=== PATIENT | male | born 1930 | race African-American/Black ===

== ENCOUNTER → 2017-07-08 | Outpatient (CLI) | payer MEDICARE, OTHER ==
[~2017-07-08] MED LIST: ASPIRIN 32325 MG/TAB PO; ASPIRIN 81M81 MG/TA2 PO; ASPIRIN E.C. 8181 MG PO; CALCIUM600 MG PO; CARAFATE 1GM1 G PO; CENTRUM SILVER1 TA1 PO; CENTRUM SILVER1 TA2 PO; DEXILANT30 MG PO; DEXILANT60 MG PO; EFFIENT10 MG PO; ENALAPRIL10 MG PO; FERROUS FUMARA325 MG PO; FIBERCON500 MG PO; FLOMAX 0.40.4 MG/CAP PO; IMDUR 60MG60 MG/TAB PO; IRON FERROUS S325 MG PO; ISOSORBIDE30 MG PO; K-DUR 2020 MEQ PO; LASIX 20MG TABL20 MG PO; LEVAQUIN 5500 MG/TA1 PO; LIPITOR20 MG PO; METOPROLOL50 MG PO; MIRALAX PA17 GM/Dose PO; NEXIUM 40MG40 MG PO; NIASPAN1000 MG PO; NIASPAN500 MG PO; NITROQUICK0.4 MG SL; OSCAL 500 TAB500 MG PO; PLAVIX 75MG TAB75 MG PO; PRILOTC PO; PROBIOTICA100 MILLIO PO; RANEXA 500MG T500 MG PO; TOPROL XL 50MG50 MG PO; ULORIC40 MG PO; VASOTEC 10M10 MG/TAB PO; ZESTRIL 10MG10 MG PO; ZITHROMAX 250M250 MG PO; ZOCOR 20MG20 MG PO
[2017-07-08 11:52] LABS: CALCIUM 9.6 mg/dL (8.4-10.2); CREATININE, serum 1.87 mg/dL (0.66-1.25); POTASSIUM 5.4 mmol/L (3.4-5.0)
[2017-07-08 12:05] LABS: TROPONIN-I 0.034 ng/mL (0.000-0.034)
== END ==
LOC: COL.LAB 11:04
DX: Z01.89 Encounter for other specified special examinations (principal)

== ENCOUNTER → 2017-11-16 | Outpatient (CLI) | payer MEDICARE, OTHER | LOC: COL.VAS 11-15 11:15 | DX: I51.7 Cardiomegaly (principal); Z95.2 Presence of prosthetic heart valve ==

== ENCOUNTER → 2017-11-30 | Outpatient (CLI) | payer MEDICARE, OTHER | LOC: COL.CARD 09:43 | DX: R00.1 Bradycardia, unspecified (principal) ==

== ENCOUNTER 2018-02-16 07:36 | Observation (INO) | payer MEDICARE, OTHER ==
[~2018-02-16] VITALS: Ht 172.7 cm; Wt 67.9 kg
[2018-02-16 07:54] LABS: BASO % 0.4 % (0.0-2.0); EOS # 0.4 (0.0-0.7); EOS % 4.3 % (0-4.0); GRAN # 6.6 (1.4-6.5); GRAN % 69.7 % (42.2-75.2); LYMPH # 0.9 (1.2-3.4); LYMPH % 9.9 % (20.0-51.0); MEAN CELL VOLUME 91 fl (80.0-100.0); MEAN CORPUSCULAR HGB CONC 32 g/dl (33.0-37.0); MEAN PLATELET VOLUME 10.6 fl (7.4-10.4); MONO # 1.3 (0.1-0.6); PLATELET COUNT 325 K/mm3 (130-400); RED BLOOD COUNT 3.35 M/mm3 (4.20-5.60); REDCELL DISTRIBUTION WIDTH-CV 15.7 % (11.5-14.5)
[2018-02-16] MEDS ORDERED: NITROSTAT0.4 MG/TAB PO (07:56)
[2018-02-16 08:03] LABS: INR 1.2 (0.8-3.0); PROTHROMBIN TIME 13.2 SECONDS (9.7-12.8)
[2018-02-16 08:05] LABS: HEMATOCRIT 30.6 % (42.0-52.0); HEMOGLOBIN 9.9 g/dl (13.5-18.0); MEAN CORPUSCULAR HEMOGLOBIN 30 pg (27.0-31.0)
[2018-02-16 08:06] LABS: PARTIAL THROMBOPLASTIN TIME 44.4 SECONDS (26.0-37.0)
[2018-02-16 08:31] LABS: TROPONIN-I 0.028 ng/mL (0.000-0.034)
[2018-02-16 09:10] LABS: ALBUMIN 3.3 gm/dL (3.5-5.0); BILIRUBIN,TOTAL 0.6 mg/dL (0.0-1.0); CALCIUM 9.2 mg/dL (8.4-10.2); CREATININE, serum 2.81 mg/dL (0.66-1.25); POTASSIUM 4.6 mmol/L (3.4-5.0); TOTAL PROTEIN 6.8 gm/dL (6.4-8.2)
[2018-02-16 11:51] VITALS: BP 170/57; PULSE 61; TEMP 97.1
[2018-02-16] MEDS ORDERED: PROTONIX 40MG T40 MG PO (11:59)
[2018-02-16] MEDS ORDERED: PLAVIX 75MG TAB75 MG PO (12:00)
[2018-02-16 12:43] LABS: CHOLESTEROL RISK RATIO 4.1
[2018-02-16] MEDS ORDERED: LASIX 20MG TABL20 MG PO (12:47)
[2018-02-16 14:55] LABS: COLLECTION METHOD CLEAN CATCH
[2018-02-16 15:08] LABS: PH 5 (5-8); SQUAMOUS EPITHELIAL None Seen /hpf; URINE APPEARANCE Clear; URINE BACTERIA None Seen /hpf; URINE BILIRUBIN Negative (NEGATIVE); URINE BLOOD Negative (NEGATIVE); URINE COLOR Yellow; URINE GLUCOSE Negative (NEGATIVE); URINE KETONE Negative (NEGATIVE); URINE LEUKOCYTE ESTERASE Negative (NEGATIVE); URINE NITRATE Negative (NEGATIVE); URINE PROTEIN(semi-quant) Negative (NEGATIVE); URINE RBC 0-2 /hpf; URINE UROBILINOGEN Negative (NEGATIVE)
[2018-02-16] MEDS ORDERED: PREDFORTE10ML OU (15:20)
[2018-02-16] MEDS ORDERED: FERROUS SU325 MG/TAB PO (15:52)
[2018-02-16] MEDS ORDERED: COREG 6.256.25 MG/TA PO (15:55)
[2018-02-16] MEDS ORDERED: LEXAPRO 10MG10 MG PO (15:56)
[2018-02-16] MEDS ORDERED: PROCRIT 2,02 MU/VIAL SQ (15:57)
[2018-02-16 16:19] VITALS: BP 132/60; PULSE 65; TEMP 97.6
[2018-02-16] MEDS ORDERED: MONODOX100 PO (16:23)
[2018-02-16 20:07] VITALS: BP 173/50; PULSE 63; TEMP 68
[2018-02-16 22:30] VITALS: BP 116/49; PULSE 70; TEMP 98.8
[2018-02-17 04:59] VITALS: BP 170/51; PULSE 50; TEMP 98.6
[2018-02-17 06:53] LABS: MEAN CELL VOLUME 92 fl (80.0-100.0); MEAN CORPUSCULAR HGB CONC 32 g/dl (33.0-37.0); MEAN PLATELET VOLUME 10.5 fl (7.4-10.4); PLATELET COUNT 289 K/mm3 (130-400); RED BLOOD COUNT 3.08 M/mm3 (4.20-5.60); REDCELL DISTRIBUTION WIDTH-CV 15.9 % (11.5-14.5)
[2018-02-17 07:07] LABS: CALCIUM 8.7 mg/dL (8.4-10.2); CREATININE, serum 2.49 mg/dL (0.66-1.25); POTASSIUM 4.7 mmol/L (3.4-5.0)
[2018-02-17 07:13] LABS: HEMATOCRIT 28.4 % (42.0-52.0); HEMOGLOBIN 9.1 g/dl (13.5-18.0); MEAN CORPUSCULAR HEMOGLOBIN 30 pg (27.0-31.0)
[2018-02-17 08:10] VITALS: BP 124/79; PULSE 61; TEMP 98.4
[2018-02-17 08:35] LABS: BAND 1 % (0-10); EOSINOPHIL 4 % (0-4); LYMPHOCYTE 12 % (20.0-51.0); METAMYELOCYTE 1 % (0-0); NEUTROPHILS 71 % (42.0-75.2); PLATELET ESTIMATE NORMAL (NORMAL)
[2018-02-17 08:36] LABS: HYPOCHROMIA 1+
[2018-02-17] MEDS ORDERED: NORVASC 10MG10 MG PO (10:46)
[2018-02-17 12:10] VITALS: BP 129/76; PULSE 64; TEMP 98.3
== END 2018-02-17 13:59 | disposition home or self-care (01) ==
LOC: COL.ER 07:36 → MEDICAL 10:28
PROVIDERS: Emergency Medicine; Student in an Organized Health Care Education/Training Program
DX: R07.9 Chest pain, unspecified (principal); I16.0 Hypertensive urgency; N18.3 Chronic kidney disease, stage 3 (moderate); N17.9 Acute kidney failure, unspecified; I25.10 Atherosclerotic heart disease of native coronary artery without angina pectoris; D53.9 Nutritional anemia, unspecified; K21.9 Gastro-esophageal reflux disease without esophagitis; M10.9 Gout, unspecified; E78.5 Hyperlipidemia, unspecified; I08.3 Combined rheumatic disorders of mitral, aortic and tricuspid valves; Z95.0 Presence of cardiac pacemaker; Z95.2 Presence of prosthetic heart valve; Z79.51 Long term (current) use of inhaled steroids; Z79.82 Long term (current) use of aspirin; Z79.02 Long term (current) use of antithrombotics/antiplatelets; Z85.46 Personal history of malignant neoplasm of prostate; Z87.891 Personal history of nicotine dependence
CPT/HCPCS: G0378; J1644

== ENCOUNTER 2018-03-17 19:32 | Inpatient (IN) | payer MEDICARE, OTHER ==
[~2018-03-17] VITALS: Ht 172.7 cm; Wt 67.5 kg
[~2018-03-17 19:32] MED LIST changes: +COREG 6.256.25 MG/TA PO; +FERROUS SU325 MG/TAB PO; +LEXAPRO 10MG10 MG PO; +MONODOX100 PO; +NITROSTAT0.4 MG/TAB PO; +NORVASC 10MG10 MG PO; +PREDFORTE10ML OU; +PROCRIT 2,02 MU/VIAL SQ; +PROTONIX 40MG T40 MG PO
[2018-03-17 20:31] VITALS: BP 143/79; PULSE 71
[2018-03-17 20:35] LABS: BASO % 0.5 % (0.0-2.0); EOS # 0.6 (0.0-0.7); EOS % 6.8 % (0-4.0); GRAN # 5.5 (1.4-6.5); GRAN % 64.3 % (42.2-75.2); LYMPH # 0.6 (1.2-3.4); LYMPH % 7.4 % (20.0-51.0); MEAN CELL VOLUME 91 fl (80.0-100.0); MEAN CORPUSCULAR HGB CONC 32 g/dl (33.0-37.0); MEAN PLATELET VOLUME 10.7 fl (7.4-10.4); MONO # 1.8 (0.1-0.6); MONO % 20.6 % (1.7-9.3); PLATELET COUNT 242 K/mm3 (130-400); RED BLOOD COUNT 2.75 M/mm3 (4.20-5.60); REDCELL DISTRIBUTION WIDTH-CV 17.7 % (11.5-14.5)
[2018-03-17 20:37] LABS: HEMOGLOBIN 8.1 g/dl (13.5-18.0); MEAN CORPUSCULAR HEMOGLOBIN 29 pg (27.0-31.0)
[2018-03-17 20:52] LABS: COLLECTION METHOD CLEAN CATCH
[2018-03-17 21:02] LABS: ALBUMIN 3.4 gm/dL (3.5-5.0); BILIRUBIN,TOTAL 0.3 mg/dL (0.0-1.0); C-REACTIVE PROTEIN 2.9 mg/dL (0.0-0.9); CALCIUM 9.2 mg/dL (8.4-10.2); CREATININE, serum 3.08 mg/dL (0.66-1.25); POTASSIUM 5.7 mmol/L (3.4-5.0); TOTAL PROTEIN 6.9 gm/dL (6.4-8.2)
[2018-03-17 21:04] LABS: PH 6 (5-8); SQUAMOUS EPITHELIAL 0-2 /hpf; URINE APPEARANCE Clear; URINE BACTERIA None Seen /hpf; URINE BILIRUBIN Negative (NEGATIVE); URINE BLOOD Negative (NEGATIVE); URINE COLOR Yellow; URINE GLUCOSE Negative (NEGATIVE); URINE KETONE Negative (NEGATIVE); URINE LEUKOCYTE ESTERASE Negative (NEGATIVE); URINE NITRATE Negative (NEGATIVE); URINE PROTEIN(semi-quant) Negative (NEGATIVE); URINE RBC 0-2 /hpf; URINE UROBILINOGEN Negative (NEGATIVE)
[2018-03-17 21:10] LABS: TROPONIN-I 0.023 ng/mL (0.000-0.034)
[2018-03-17] MEDS ORDERED: CARAFATE 1GM1 G PO (21:27)
[2018-03-17] MEDS ORDERED: PROCRIT 1010 MU/VIAL (21:28)
[2018-03-17] MEDS ORDERED: RANEXA 500MG T500 MG PO (21:28)
[2018-03-17] MEDS ORDERED: VASOTEC 10M10 MG/TAB PO (21:31)
[2018-03-17] MEDS ORDERED: ASPIRIN 32325 MG/TAB PO (21:32)
[2018-03-17] MEDS ORDERED: COREG12.5 MG PO (21:32)
[2018-03-17] MEDS ORDERED: LASIX 20MG TABL20 MG PO (21:32)
[2018-03-17] MEDS ORDERED: OSCAL 500 TAB500 MG PO (21:32)
[2018-03-17 23:33] VITALS: BP 138/67; PULSE 81; TEMP 97.7
[2018-03-18] VITALS (14 sets, daily range): BP systolic 104–178; BP diastolic 38–85; PULSE 56–100; TEMP 98.2–99.2
[2018-03-18 00:58] LABS: HEMATOCRIT 24.8 % (42.0-52.0); HEMOGLOBIN 8.1 g/dl (13.5-18.0)
[2018-03-18 01:21] LABS: CALCIUM 8.8 mg/dL (8.4-10.2); CREATININE, serum 2.84 mg/dL (0.66-1.25)
[2018-03-18 04:46] LABS: HEMATOCRIT 24.9 % (42.0-52.0); HEMOGLOBIN 8.1 g/dl (13.5-18.0)
[2018-03-18 09:33] LABS: BASO % 0.4 % (0.0-2.0); EOS # 0.2 (0.0-0.7); EOS % 2.2 % (0-4.0); GRAN # 5.7 (1.4-6.5); GRAN % 74.3 % (42.2-75.2); HEMATOCRIT 24.6 % (42.0-52.0); HEMOGLOBIN 7.9 g/dl (13.5-18.0); LYMPH # 0.4 (1.2-3.4); LYMPH % 5.5 % (20.0-51.0); MEAN CELL VOLUME 90 fl (80.0-100.0); MEAN CORPUSCULAR HEMOGLOBIN 29 pg (27.0-31.0); MEAN CORPUSCULAR HGB CONC 32 g/dl (33.0-37.0); MEAN PLATELET VOLUME 9.5 fl (7.4-10.4); MONO # 1.3 (0.1-0.6); MONO % 17.3 % (1.7-9.3); PLATELET COUNT 216 K/mm3 (130-400); RED BLOOD COUNT 2.73 M/mm3 (4.20-5.60); REDCELL DISTRIBUTION WIDTH-CV 17.5 % (11.5-14.5)
[2018-03-18 09:49] LABS: CALCIUM 8.7 mg/dL (8.4-10.2); CREATININE, serum 2.72 mg/dL (0.66-1.25); POTASSIUM 5.5 mmol/L (3.4-5.0)
[2018-03-18 10:04] LABS: TROPONIN-I 0.063 ng/mL (0.000-0.034)
[2018-03-18 12:57] LABS: HEMATOCRIT 24.4 % (42.0-52.0); HEMOGLOBIN 7.8 g/dl (13.5-18.0)
[2018-03-18 20:43] LABS: HEMATOCRIT 31.1 % (42.0-52.0); HEMOGLOBIN 9.9 g/dl (13.5-18.0)
[2018-03-19] VITALS (8 sets, daily range): BP systolic 125–167; BP diastolic 47–94; PULSE 84–100; TEMP 97.7–98.9
[2018-03-19 07:58] LABS: MEAN CELL VOLUME 91 fl (80.0-100.0); MEAN CORPUSCULAR HGB CONC 32 g/dl (33.0-37.0); MEAN PLATELET VOLUME 10.7 fl (7.4-10.4); PLATELET COUNT 212 K/mm3 (130-400); RED BLOOD COUNT 3.34 M/mm3 (4.20-5.60); REDCELL DISTRIBUTION WIDTH-CV 17.8 % (11.5-14.5)
[2018-03-19 08:02] LABS: HEMATOCRIT 30.3 % (42.0-52.0); HEMOGLOBIN 9.8 g/dl (13.5-18.0); MEAN CORPUSCULAR HEMOGLOBIN 29 pg (27.0-31.0)
[2018-03-19 08:09] LABS: CALCIUM 8.5 mg/dL (8.4-10.2); CREATININE, serum 2.43 mg/dL (0.66-1.25)
[2018-03-19 09:23] LABS: BAND 7 % (0-10); LYMPHOCYTE 2 % (20.0-51.0); NEUTROPHILS 86 % (42.0-75.2)
[2018-03-19 09:24] LABS: PLATELET ESTIMATE NORMAL (NORMAL)
[2018-03-20 03:47] VITALS: BP 151/65; PULSE 94; TEMP 98.5
[2018-03-20 07:07] LABS: HEMOGLOBIN 10.2 g/dl (13.5-18.0); MEAN CELL VOLUME 88 fl (80.0-100.0); MEAN CORPUSCULAR HEMOGLOBIN 29 pg (27.0-31.0); MEAN CORPUSCULAR HGB CONC 33 g/dl (33.0-37.0); MEAN PLATELET VOLUME 10.3 fl (7.4-10.4); PLATELET COUNT 229 K/mm3 (130-400); REDCELL DISTRIBUTION WIDTH-CV 17.6 % (11.5-14.5)
[2018-03-20 07:25] LABS: CALCIUM 8.5 mg/dL (8.4-10.2); CREATININE, serum 2.46 mg/dL (0.66-1.25)
[2018-03-20 07:29] LABS: HEMATOCRIT 30.8 % (42.0-52.0)
[2018-03-20 08:13] LABS: ANISOCYTOSIS 1+; BAND 1 % (0-10); EOSINOPHIL 2 % (0-4); LYMPHOCYTE 1 % (20.0-51.0); NEUTROPHILS 89 % (42.0-75.2); TOXIC GRANULATION PRESENT
[2018-03-20 08:14] LABS: PLATELET ESTIMATE NORMAL (NORMAL)
[2018-03-20 08:27] VITALS: BP 147/53; PULSE 88; TEMP 98
[2018-03-20 11:10] VITALS: BP 124/39; PULSE 90; TEMP 97.8
[2018-03-20 15:22] VITALS: BP 154/59; PULSE 95; TEMP 98.4
[2018-03-20 20:25] VITALS: BP 123/48; PULSE 96; TEMP 97.5
[2018-03-20 23:48] VITALS: BP 141/56; PULSE 87; TEMP 98.6
[2018-03-21 03:53] VITALS: BP 141/53; PULSE 92; TEMP 98.5
[2018-03-21 07:13] LABS: HEMOGLOBIN 11.2 g/dl (13.5-18.0); MEAN CELL VOLUME 88 fl (80.0-100.0); MEAN CORPUSCULAR HEMOGLOBIN 29 pg (27.0-31.0); MEAN CORPUSCULAR HGB CONC 33 g/dl (33.0-37.0); MEAN PLATELET VOLUME 11.1 fl (7.4-10.4); PLATELET COUNT 284 K/mm3 (130-400); RED BLOOD COUNT 3.83 M/mm3 (4.20-5.60); REDCELL DISTRIBUTION WIDTH-CV 17.7 % (11.5-14.5)
[2018-03-21 07:16] LABS: CALCIUM 8.9 mg/dL (8.4-10.2); CREATININE, serum 2.68 mg/dL (0.66-1.25); MAGNESIUM 1.9 mg/dL (1.6-2.3); POTASSIUM 3.7 mmol/L (3.4-5.0)
[2018-03-21 07:18] LABS: HEMATOCRIT 33.7 % (42.0-52.0)
[2018-03-21 07:50] VITALS: BP 156/60; PULSE 93; TEMP 98.7
[2018-03-21 09:54] LABS: ANISOCYTOSIS 1+; BAND 5 % (0-10); HYPOCHROMIA 2+; LYMPHOCYTE 10 % (20.0-51.0); NEUTROPHILS 75 % (42.0-75.2); PLATELET ESTIMATE NORMAL (NORMAL)
[2018-03-21 11:35] VITALS: BP 131/70; PULSE 81; TEMP 97.6
[2018-03-21] MEDS ORDERED: ASPIRIN 81M81 MG/TA2 PO (13:43)
[2018-03-21] MEDS ORDERED: LASIX 40MG TABL40 MG PO (13:44)
[2018-03-21 15:39] VITALS: PULSE 83
== END 2018-03-21 20:27 | disposition home or self-care (01) | DRG 280 ==
LOC: COL.ER 19:32 → SURG 22:09
PROVIDERS: Emergency Medicine; Internal Medicine; Internal Medicine Pulmonary Disease; Nurse Practitioner Family
DX: I13.0 Hypertensive heart and chronic kidney disease with heart failure and stage 1 through stage 4 chronic kidney disease, or unspecified chronic kidney disease (principal); I50.33 Acute on chronic diastolic (congestive) heart failure; I21.A1 Myocardial infarction type 2; K55.21 Angiodysplasia of colon with hemorrhage; N18.4 Chronic kidney disease, stage 4 (severe); D62 Acute posthemorrhagic anemia; N17.9 Acute kidney failure, unspecified; I25.10 Atherosclerotic heart disease of native coronary artery without angina pectoris; Z95.1 Presence of aortocoronary bypass graft; Z95.5 Presence of coronary angioplasty implant and graft; Z95.2 Presence of prosthetic heart valve; Z87.891 Personal history of nicotine dependence; Z85.46 Personal history of malignant neoplasm of prostate; D50.0 Iron deficiency anemia secondary to blood loss (chronic); E87.5 Hyperkalemia; I08.2 Rheumatic disorders of both aortic and tricuspid valves; Z91.81 History of falling
CPT/HCPCS: 99222-AI; 99232-AI; 99233-AI; 99239; C9113; G0378; G8978-GP; G8979-GP; J1940; J7030; P9016

== ENCOUNTER → 2018-03-28 | Outpatient (CLI) | payer MEDICARE, OTHER ==
[~2018-03-28] MED LIST changes: +COREG12.5 MG PO; +LASIX 40MG TABL40 MG PO; +PROCRIT 1010 MU/VIAL
== END ==
LOC: COL.RAD 07:16
DX: Z53.8 Procedure and treatment not carried out for other reasons (principal); D50.9 Iron deficiency anemia, unspecified

== ENCOUNTER 2018-04-26 09:50 | Inpatient (IN) | payer MEDICARE, OTHER ==
[~2018-04-26] VITALS: Ht 172.7 cm; Wt 62.5 kg
[2018-04-26 10:24] LABS: BASO % 0.1 % (0.0-2.0); GRAN # 14.9 (1.4-6.5); GRAN % 78.2 % (42.2-75.2); HEMATOCRIT 45.5 % (42.0-52.0); HEMOGLOBIN 15.2 g/dl (13.5-18.0); LYMPH # 0.8 (1.2-3.4); LYMPH % 4.3 % (20.0-51.0); MEAN CELL VOLUME 86 fl (80.0-100.0); MEAN CORPUSCULAR HEMOGLOBIN 29 pg (27.0-31.0); MEAN CORPUSCULAR HGB CONC 33 g/dl (33.0-37.0); MONO # 3.1 (0.1-0.6); PLATELET COUNT 254 K/mm3 (130-400); RED BLOOD COUNT 5.29 M/mm3 (4.20-5.60)
[2018-04-26 10:26] LABS: INR 1.2 (0.8-3.0); PROTHROMBIN TIME 13.1 SECONDS (9.7-12.8)
[2018-04-26 10:31] LABS: ALBUMIN 3.9 gm/dL (3.5-5.0); BILIRUBIN,TOTAL 0.6 mg/dL (0.0-1.0); CALCIUM 9.3 mg/dL (8.4-10.2); POTASSIUM 4.9 mmol/L (3.4-5.0); TOTAL PROTEIN 7.2 gm/dL (6.4-8.2)
[2018-04-26 10:36] LABS: CREATININE, serum 4.65 mg/dL (0.66-1.25)
[2018-04-26 10:40] VITALS: BP 139/67; PULSE 80
[2018-04-26 10:46] LABS: TROPONIN-I 0.112 ng/mL (0.000-0.034)
[2018-04-26] MEDS ORDERED: CIPRODEX OT (10:56)
[2018-04-26 12:35] LABS: COLLECTION METHOD CLEAN CATCH
[2018-04-26 12:46] LABS: PH 5 (5-8); SQUAMOUS EPITHELIAL 0-2 /hpf; URINE APPEARANCE Clear; URINE BACTERIA None Seen /hpf; URINE BILIRUBIN Negative (NEGATIVE); URINE BLOOD 2+ (NEGATIVE); URINE COLOR Straw; URINE GLUCOSE Negative (NEGATIVE); URINE KETONE Negative (NEGATIVE); URINE LEUKOCYTE ESTERASE Negative (NEGATIVE); URINE NITRATE Negative (NEGATIVE); URINE PROTEIN(semi-quant) Negative (NEGATIVE); URINE UROBILINOGEN Negative (NEGATIVE)
[2018-04-26 13:56] VITALS: BP 137/49; PULSE 91; TEMP 98.1
[2018-04-26 15:13] VITALS: BP 125/64; PULSE 82; TEMP 98.2
[2018-04-26 20:04] VITALS: BP 135/62; PULSE 81; TEMP 97.4
[2018-04-27] VITALS (7 sets, daily range): BP systolic 124–150; BP diastolic 50–91; PULSE 77–92; TEMP 97.8–98.7
[2018-04-27 06:48] LABS: HEMATOCRIT 44.4 % (42.0-52.0); MEAN CELL VOLUME 86 fl (80.0-100.0); MEAN CORPUSCULAR HEMOGLOBIN 29 pg (27.0-31.0); MEAN CORPUSCULAR HGB CONC 34 g/dl (33.0-37.0); MEAN PLATELET VOLUME 10.8 fl (7.4-10.4); PLATELET COUNT 213 K/mm3 (130-400); RED BLOOD COUNT 5.17 M/mm3 (4.20-5.60); REDCELL DISTRIBUTION WIDTH-CV 21.7 % (11.5-14.5)
[2018-04-27 06:58] LABS: ALBUMIN 3.3 gm/dL (3.5-5.0); CALCIUM 9.2 mg/dL (8.4-10.2); POTASSIUM 4.7 mmol/L (3.4-5.0)
[2018-04-27 07:00] LABS: CREATININE, serum 4.39 mg/dL (0.66-1.25); PHOSPHOROUS 5.5 mg/dL (2.5-4.5)
[2018-04-27 07:17] LABS: BAND 1 % (0-10); EOSINOPHIL 2 % (0-4); LYMPHOCYTE 1 % (20.0-51.0); NEUTROPHILS 81 % (42.0-75.2); PLATELET ESTIMATE NORMAL (NORMAL)
[2018-04-27 07:18] LABS: ANISOCYTOSIS 2+; TARGET CELLS 3+
[2018-04-27 09:25] LABS: COLLECTION METHOD CATHETER
[2018-04-27 09:37] LABS: MUCOUS Present /lpf; PH 5 (5-8); SQUAMOUS EPITHELIAL None Seen /hpf; URINE APPEARANCE Clear; URINE BACTERIA None Seen /hpf; URINE BILIRUBIN Negative (NEGATIVE); URINE BLOOD 3+ (NEGATIVE); URINE COLOR Yellow; URINE GLUCOSE Negative (NEGATIVE); URINE KETONE Negative (NEGATIVE); URINE LEUKOCYTE ESTERASE 1+ (NEGATIVE); URINE NITRATE Negative (NEGATIVE); URINE PROTEIN(semi-quant) Negative (NEGATIVE); URINE RBC >50 /hpf; URINE UROBILINOGEN Negative (NEGATIVE); URINE WBC 20-50 /hpf
[2018-04-27 09:57] LABS: URINE PROTEIN:CREAT RATIO 0.17 (0.00-0.14)
[2018-04-27 22:53] LABS: HEPATITIS B CORE AB,TOTAL Negative (()); HEPATITIS B SURFACE ANTIBODY <2.0 (()); HEPATITIS B SURFACE ANTIGEN Negative (())
[2018-04-28 04:13] VITALS: BP 151/72; PULSE 71; TEMP 97.6
[2018-04-28 06:54] LABS: HEMOGLOBIN 14.8 g/dl (13.5-18.0); MEAN CELL VOLUME 85 fl (80.0-100.0); MEAN CORPUSCULAR HEMOGLOBIN 29 pg (27.0-31.0); MEAN CORPUSCULAR HGB CONC 34 g/dl (33.0-37.0); MEAN PLATELET VOLUME 11.1 fl (7.4-10.4); PLATELET COUNT 213 K/mm3 (130-400); RED BLOOD COUNT 5.19 M/mm3 (4.20-5.60); REDCELL DISTRIBUTION WIDTH-CV 21.9 % (11.5-14.5)
[2018-04-28 07:15] LABS: ALBUMIN 3.1 gm/dL (3.5-5.0); CALCIUM 8.8 mg/dL (8.4-10.2); CREATININE, serum 3.55 mg/dL (0.66-1.25); PHOSPHOROUS 5.4 mg/dL (2.5-4.5); POTASSIUM 4.6 mmol/L (3.4-5.0)
[2018-04-28 07:38] VITALS: BP 142/49; PULSE 52; TEMP 98
[2018-04-28 08:08] LABS: BAND 2 % (0-10); LYMPHOCYTE 5 % (20.0-51.0); NEUTROPHILS 80 % (42.0-75.2)
[2018-04-28 08:10] LABS: HYPOCHROMIA 1+; PLATELET ESTIMATE NORMAL (NORMAL)
[2018-04-28 13:30] VITALS: BP 121/68; PULSE 80; TEMP 98.2
[2018-04-28 16:17] VITALS: BP 131/58; PULSE 75; TEMP 97.4
[2018-04-28 20:30] VITALS: BP 106/60; PULSE 82
[2018-04-29 00:30] VITALS: BP 114/55; PULSE 85; TEMP 97.8
[2018-04-29 05:17] VITALS: BP 148/59; PULSE 88; TEMP 97.9
[2018-04-29 07:11] LABS: HEMATOCRIT 40.9 % (42.0-52.0); HEMOGLOBIN 13.2 g/dl (13.5-18.0); MEAN CELL VOLUME 89 fl (80.0-100.0); MEAN CORPUSCULAR HEMOGLOBIN 29 pg (27.0-31.0); MEAN CORPUSCULAR HGB CONC 32 g/dl (33.0-37.0); MEAN PLATELET VOLUME 10.9 fl (7.4-10.4); PLATELET COUNT 135 K/mm3 (130-400); RED BLOOD COUNT 4.61 M/mm3 (4.20-5.60); REDCELL DISTRIBUTION WIDTH-CV 21.9 % (11.5-14.5)
[2018-04-29 07:29] LABS: ALBUMIN 2.7 gm/dL (3.5-5.0); CALCIUM 8.5 mg/dL (8.4-10.2); CREATININE, serum 3.01 mg/dL (0.66-1.25); PHOSPHOROUS 3.9 mg/dL (2.5-4.5); POTASSIUM 4.8 mmol/L (3.4-5.0)
[2018-04-29 07:44] VITALS: BP 120/49; PULSE 72; TEMP 98
[2018-04-29 09:43] LABS: ANISOCYTOSIS 3+; BAND 3 % (0-10); LYMPHOCYTE 9 % (20.0-51.0); NEUTROPHILS 80 % (42.0-75.2); OVALOCYTES 1+; PLATELET ESTIMATE NORMAL (NORMAL); TARGET CELLS 1+
[2018-04-29 11:54] VITALS: BP 128/63; PULSE 100; TEMP 98.2
[2018-04-29 16:00] VITALS: BP 138/60; PULSE 80; TEMP 98.6
[2018-04-29 20:00] VITALS: BP 148/64; PULSE 83; TEMP 98.8
[2018-04-30] VITALS (7 sets, daily range): BP systolic 127–160; BP diastolic 53–89; PULSE 73–95; TEMP 97.7–98.6
[2018-04-30 08:45] LABS: HEMATOCRIT 39.4 % (42.0-52.0); HEMOGLOBIN 13.1 g/dl (13.5-18.0); MEAN CELL VOLUME 87 fl (80.0-100.0); MEAN CORPUSCULAR HEMOGLOBIN 29 pg (27.0-31.0); MEAN CORPUSCULAR HGB CONC 33 g/dl (33.0-37.0); MEAN PLATELET VOLUME 11.1 fl (7.4-10.4); PLATELET COUNT 109 K/mm3 (130-400); RED BLOOD COUNT 4.51 M/mm3 (4.20-5.60); REDCELL DISTRIBUTION WIDTH-CV 21.7 % (11.5-14.5)
[2018-04-30 08:51] LABS: ALBUMIN 2.8 gm/dL (3.5-5.0); CALCIUM 8.3 mg/dL (8.4-10.2); CREATININE, serum 2.65 mg/dL (0.66-1.25); PHOSPHOROUS 3.4 mg/dL (2.5-4.5)
[2018-04-30 09:44] LABS: ANISOCYTOSIS 3+; BAND 2 % (0-10); HYPOCHROMIA 1+; LYMPHOCYTE 8 % (20.0-51.0); NEUTROPHILS 82 % (42.0-75.2); PLATELET ESTIMATE NORMAL (NORMAL)
[2018-05-01 04:00] VITALS: BP 148/67; PULSE 94; TEMP 98.4
[2018-05-01 07:16] LABS: HEMATOCRIT 38.6 % (42.0-52.0); HEMOGLOBIN 12.7 g/dl (13.5-18.0); MEAN CELL VOLUME 87 fl (80.0-100.0); MEAN CORPUSCULAR HEMOGLOBIN 29 pg (27.0-31.0); MEAN CORPUSCULAR HGB CONC 33 g/dl (33.0-37.0); MEAN PLATELET VOLUME 10.5 fl (7.4-10.4); PLATELET COUNT 105 K/mm3 (130-400); RED BLOOD COUNT 4.44 M/mm3 (4.20-5.60); REDCELL DISTRIBUTION WIDTH-CV 21.8 % (11.5-14.5)
[2018-05-01 07:19] VITALS: BP 141/46; PULSE 80; TEMP 98.2
[2018-05-01 07:26] LABS: ALBUMIN 2.7 gm/dL (3.5-5.0); CALCIUM 8.3 mg/dL (8.4-10.2); CREATININE, serum 2.98 mg/dL (0.66-1.25); PHOSPHOROUS 3.4 mg/dL (2.5-4.5); POTASSIUM 5.1 mmol/L (3.4-5.0)
[2018-05-01 09:58] LABS: BAND 3 % (0-10); BASOPHIL 1 % (0-2); LYMPHOCYTE 7 % (20.0-51.0); NEUTROPHILS 76 % (42.0-75.2)
[2018-05-01 09:59] LABS: PLATELET ESTIMATE DECREASED (NORMAL)
[2018-05-01 10:00] LABS: HYPOCHROMIA 1+; TARGET CELLS 1+
[2018-05-01 10:01] LABS: POIKILOCYTOSIS 1+
[2018-05-01 11:49] VITALS: BP 168/81; PULSE 90; TEMP 97.8
[2018-05-01 12:12] VITALS: BP 171/83; PULSE 102; TEMP 96.7
[2018-05-01 14:44] LABS: HCV GENOTYPE Undetected (())
[2018-05-01 17:00] VITALS: BP 139/56; PULSE 82; TEMP 98.5
[2018-05-01 21:04] VITALS: BP 131/58; PULSE 94; TEMP 97.8
[2018-05-02 03:36] VITALS: BP 131/56; PULSE 85; TEMP 97.8
[2018-05-02 06:46] LABS: HEMATOCRIT 40.7 % (42.0-52.0); HEMOGLOBIN 13.5 g/dl (13.5-18.0); MEAN CELL VOLUME 88 fl (80.0-100.0); MEAN CORPUSCULAR HEMOGLOBIN 29 pg (27.0-31.0); MEAN CORPUSCULAR HGB CONC 33 g/dl (33.0-37.0); MEAN PLATELET VOLUME 11.4 fl (7.4-10.4); PLATELET COUNT 109 K/mm3 (130-400); RED BLOOD COUNT 4.61 M/mm3 (4.20-5.60)
[2018-05-02 06:57] LABS: CALCIUM 8.5 mg/dL (8.4-10.2); CREATININE, serum 2.48 mg/dL (0.66-1.25); POTASSIUM 4.3 mmol/L (3.4-5.0)
[2018-05-02 08:14] VITALS: BP 133/69; PULSE 82
[2018-05-02 08:14] LABS: BAND 2 % (0-10); EOSINOPHIL 1 % (0-4); LYMPHOCYTE 4 % (20.0-51.0); NEUTROPHILS 83 % (42.0-75.2)
[2018-05-02 08:15] LABS: BURR CELLS 1+; PLATELET ESTIMATE DECREASED (NORMAL); TARGET CELLS 1+
[2018-05-02 08:16] LABS: HYPOCHROMIA 1+; POIKILOCYTOSIS 1+
[2018-05-02 09:17] VITALS: BP 101/51; PULSE 73; TEMP 97.8
[2018-05-02 11:38] VITALS: BP 109/57; PULSE 60; TEMP 97.9
[2018-05-02] MEDS ORDERED: COREG 6.256.25 MG/TA PO (13:20)
[2018-05-02] MEDS ORDERED: MELAT3MGTAB PO (13:21)
[2018-05-02] MEDS ORDERED: ULORIC40 MG PO (13:32)
[2018-05-02 13:57] VITALS: BP 109/57; PULSE 60; TEMP 97.9
== END 2018-05-02 14:30 | DRG 673 ==
LOC: COL.ER 09:50 → MEDICAL 13:27
PROVIDERS: Emergency Medicine; Internal Medicine Nephrology; Physician Assistant
PROC: 02HV33Z Insertion of Infusion Device into Superior Vena Cava, Percutaneous Approach (ICD-10-PCS; 2018-04-28)
PROC: 5A1D70Z Performance of Urinary Filtration, Intermittent, Less than 6 Hours Per Day (ICD-10-PCS; 2018-04-28)
PROC: 5A1D70Z Performance of Urinary Filtration, Intermittent, Less than 6 Hours Per Day (ICD-10-PCS; 2018-04-29)
PROC: 5A1D70Z Performance of Urinary Filtration, Intermittent, Less than 6 Hours Per Day (ICD-10-PCS; 2018-05-01)
PROC: 0JH60XZ Insertion of Tunneled Vascular Access Device into Chest Subcutaneous Tissue and Fascia, Open Approach (ICD-10-PCS; principal; 2018-05-02)
DX: N17.9 Acute kidney failure, unspecified (principal); G93.41 Metabolic encephalopathy; I21.A1 Myocardial infarction type 2; I12.0 Hypertensive chronic kidney disease with stage 5 chronic kidney disease or end stage renal disease; E44.0 Moderate protein-calorie malnutrition; I25.10 Atherosclerotic heart disease of native coronary artery without angina pectoris; Z95.1 Presence of aortocoronary bypass graft; Z95.5 Presence of coronary angioplasty implant and graft; Z95.2 Presence of prosthetic heart valve; Z85.46 Personal history of malignant neoplasm of prostate; Z87.891 Personal history of nicotine dependence; D63.1 Anemia in chronic kidney disease; N18.6 End stage renal disease; D75.1 Secondary polycythemia
CPT/HCPCS: 99223-AI; 99231-AI; 99232-AI; 99233-AI; 99239; C1769; J0696; J1644; J2250; J3010; J7030

== ENCOUNTER 2018-06-12 20:09 | Observation (INO) | payer MEDICARE, OTHER ==
[~2018-06-12] VITALS: Ht 172.7 cm; Wt 65.9 kg
[~2018-06-12 20:09] MED LIST changes: +CIPRODEX OT; +MELAT3MGTAB PO
[2018-06-12 22:12] LABS: ALBUMIN 3.5 gm/dL (3.5-5.0); BILIRUBIN,TOTAL 0.5 mg/dL (0.0-1.0); C-REACTIVE PROTEIN 0.6 mg/dL (0.0-0.9); CALCIUM 8.8 mg/dL (8.4-10.2); CREATININE, serum 1.88 mg/dL (0.66-1.25); POTASSIUM 4.2 mmol/L (3.4-5.0); TOTAL PROTEIN 6.5 gm/dL (6.4-8.2)
[2018-06-12 22:22] LABS: TROPONIN-I 0.045 ng/mL (0.000-0.034)
[2018-06-12 22:29] LABS: BASO % 0.4 % (0.0-2.0); EOS % 0.3 % (0-4.0); GRAN % 75.9 % (42.2-75.2); HEMATOCRIT 35.2 % (42.0-52.0); HEMOGLOBIN 11.4 g/dl (13.5-18.0); LYMPH # 0.7 (1.2-3.4); LYMPH % 7.8 % (20.0-51.0); MEAN CELL VOLUME 93 fl (80.0-100.0); MEAN CORPUSCULAR HEMOGLOBIN 30 pg (27.0-31.0); MEAN CORPUSCULAR HGB CONC 32 g/dl (33.0-37.0); MEAN PLATELET VOLUME 10.4 fl (7.4-10.4); MONO # 1.3 (0.1-0.6); MONO % 14.6 % (1.7-9.3); PLATELET COUNT 197 K/mm3 (130-400); RED BLOOD COUNT 3.78 M/mm3 (4.20-5.60); REDCELL DISTRIBUTION WIDTH-CV 20.9 % (11.5-14.5)
[2018-06-13 01:20] VITALS: BP 129/41; PULSE 63; TEMP 98.8
[2018-06-13 04:15] VITALS: BP 116/44; PULSE 76; TEMP 98.8
[2018-06-13 06:40] LABS: HEMOGLOBIN 10.8 g/dl (13.5-18.0); MEAN CELL VOLUME 94 fl (80.0-100.0); MEAN CORPUSCULAR HEMOGLOBIN 30 pg (27.0-31.0); MEAN CORPUSCULAR HGB CONC 32 g/dl (33.0-37.0); MEAN PLATELET VOLUME 10.5 fl (7.4-10.4); PLATELET COUNT 194 K/mm3 (130-400); RED BLOOD COUNT 3.57 M/mm3 (4.20-5.60); REDCELL DISTRIBUTION WIDTH-CV 21.2 % (11.5-14.5)
[2018-06-13 06:45] LABS: HEMATOCRIT 33.7 % (42.0-52.0)
[2018-06-13 07:56] VITALS: BP 128/48; PULSE 58; TEMP 98.1
[2018-06-13 08:20] LABS: BAND 1 % (0-10); EOSINOPHIL 1 % (0-4); LYMPHOCYTE 19 % (20.0-51.0); NEUTROPHILS 57 % (42.0-75.2); PLATELET ESTIMATE NORMAL (NORMAL)
[2018-06-13 08:21] LABS: ANISOCYTOSIS 3+
[2018-06-13 12:02] VITALS: BP 112/50; PULSE 71; TEMP 97.8
== END 2018-06-13 15:11 | disposition home or self-care (01) ==
LOC: COL.ER 20:09 → MEDICAL 23:05
PROVIDERS: Emergency Medicine; Internal Medicine
DX: R10.9 Unspecified abdominal pain (principal); R07.9 Chest pain, unspecified; I12.0 Hypertensive chronic kidney disease with stage 5 chronic kidney disease or end stage renal disease; N18.6 End stage renal disease; E78.5 Hyperlipidemia, unspecified; K21.9 Gastro-esophageal reflux disease without esophagitis; M10.9 Gout, unspecified; D63.1 Anemia in chronic kidney disease; I25.10 Atherosclerotic heart disease of native coronary artery without angina pectoris; Z79.82 Long term (current) use of aspirin; Z99.2 Dependence on renal dialysis; Z95.1 Presence of aortocoronary bypass graft; Z95.5 Presence of coronary angioplasty implant and graft; Z95.2 Presence of prosthetic heart valve; Z87.891 Personal history of nicotine dependence
CPT/HCPCS: G0378; J2405

== ENCOUNTER 2018-07-12 19:10 | Emergency (ER) | payer MEDICARE, OTHER ==
[~2018-07-12] VITALS: Ht 172.7 cm; Wt 65.5 kg
[2018-07-12 19:18] VITALS: TEMP 97.7
[2018-07-12 21:04] VITALS: BP 129/68; PULSE 74
== END 2018-07-12 21:05 | disposition home or self-care (01) ==
LOC: COL.ER 19:10
DX: R04.0 Epistaxis (principal); N18.9 Chronic kidney disease, unspecified; I25.2 Old myocardial infarction; Z99.2 Dependence on renal dialysis; Z79.82 Long term (current) use of aspirin

== ENCOUNTER → 2018-07-25 | Outpatient (CLI) | payer MEDICARE, OTHER | LOC: COL.VAS 10:08 | DX: Z13.6 Encounter for screening for cardiovascular disorders (principal); N17.9 Acute kidney failure, unspecified; N18.1 Chronic kidney disease, stage 1 | CPT/HCPCS: G0365 ==

== ENCOUNTER 2018-11-07 19:36 | Inpatient (IN) | payer MEDICARE, OTHER ==
[~2018-11-07] VITALS: Ht 172.7 cm; Wt 64.5 kg
[2018-11-07 20:15] LABS: INR 1.2 (0.8-3.0); PROTHROMBIN TIME 13.8 SECONDS (9.7-12.8)
[2018-11-07 20:17] LABS: ALBUMIN 3.5 gm/dL (3.5-5.0); BILIRUBIN,TOTAL 0.3 mg/dL (0.0-1.0); CALCIUM 9.1 mg/dL (8.4-10.2); CREATININE, serum 3.26 mg/dL (0.66-1.25); POTASSIUM 4.3 mmol/L (3.4-5.0); TOTAL PROTEIN 6.3 gm/dL (6.4-8.2)
[2018-11-07 20:19] LABS: HEMATOCRIT 23.1 % (42.0-52.0); HEMOGLOBIN 7.4 g/dl (13.5-18.0); MEAN CELL VOLUME 98 fl (80.0-100.0); MEAN CORPUSCULAR HEMOGLOBIN 31 pg (27.0-31.0); MEAN CORPUSCULAR HGB CONC 32 g/dl (33.0-37.0); MEAN PLATELET VOLUME 10.5 fl (7.4-10.4); PLATELET COUNT 255 K/mm3 (130-400); RED BLOOD COUNT 2.35 M/mm3 (4.20-5.60); REDCELL DISTRIBUTION WIDTH-CV 15.9 % (11.5-14.5)
[2018-11-07 20:33] LABS: BAND 2 % (0-10); EOSINOPHIL 5 % (0-4); LYMPHOCYTE 7 % (20.0-51.0); NEUTROPHILS 65 % (42.0-75.2); NUCLEATED RED BLOOD CELL 2 (0-6)
[2018-11-07 20:34] LABS: PLATELET ESTIMATE NORMAL (NORMAL)
[2018-11-07] MEDS ORDERED: ULORIC80 MG PO (20:56)
[2018-11-07] MEDS ORDERED: LEXAPRO 10MG10 MG PO (21:00)
[2018-11-07 21:09] VITALS: BP 153/56; PULSE 78; TEMP 98.1
--- NOTE | 2018-11-07 21:10 | NUR ---
Arrived to medical floor from express unit via wheelchair. Assisted patient into hospital gown. Assessment complete. Lungs clear. Heart sounds normal. Bowels active x4. Dialysis access to right chest. Bilateral lower leg edema +1. Scatch to right knee with scab. DPOA at bedside. Orientated to medical floor, room, and call light system. Denies pain. Denies other needs at this time. Call light in reach.
[2018-11-07 23:44] VITALS: BP 137/89; BP 161/58; PULSE 117; PULSE 79; TEMP 98; TEMP 98.4
--- NOTE | 2018-11-08 02:12 | NUR ---
Resting bed asleep with friend at bedside. Call light in reach.
[2018-11-08 05:17] VITALS: BP 172/80; PULSE 81; TEMP 98.5
--- NOTE | 2018-11-08 05:31 | NUR ---
Contacted Dr. Pa regarding blood pressure trending upwards. Currently 172/[address] Pa, no new orders.
--- NOTE | 2018-11-08 06:18 | NUR ---
Systolic blood pressure trending upward throughout night. Dr. Pa contacted with no new orders. Otherwise uneventful night. No bowel movements. Friend stayed night. Denies needs. Call light in reach.
[2018-11-08 07:53] VITALS: BP 167/59; PULSE 86; TEMP 98.6
--- NOTE | 2018-11-08 09:20 | NUR ---
PT TAKEN DOWN VIA WHEELCHAIR TO DIALYSIS. 1ST UNIT PRBC OBTAINED FROM LAB AND GIVEN TO CRISTOPHER HAMPTON, DIALYSIS NURSE TO INFUSE DURING DIALYSIS.
[2018-11-08 09:51] LABS: BASO % 0.3 % (0.0-2.0); EOS # 0.3 (0.0-0.7); EOS % 4.9 % (0-4.0); GRAN # 4.3 (1.4-6.5); LYMPH # 0.8 (1.2-3.4); LYMPH % 12.5 % (20.0-51.0); MEAN CELL VOLUME 101 fl (80.0-100.0); MEAN CORPUSCULAR HGB CONC 31 g/dl (33.0-37.0); MEAN PLATELET VOLUME 10.3 fl (7.4-10.4); MONO # 0.9 (0.1-0.6); MONO % 14.7 % (1.7-9.3); PLATELET COUNT 245 K/mm3 (130-400); RED BLOOD COUNT 2.21 M/mm3 (4.20-5.60); REDCELL DISTRIBUTION WIDTH-CV 15.9 % (11.5-14.5)
[2018-11-08 09:53] LABS: HEMATOCRIT 22.4 % (42.0-52.0); MEAN CORPUSCULAR HEMOGLOBIN 32 pg (27.0-31.0)
[2018-11-08 10:01] LABS: CALCIUM 8.9 mg/dL (8.4-10.2); CREATININE, serum 3.63 mg/dL (0.66-1.25); POTASSIUM 4.6 mmol/L (3.4-5.0)
--- NOTE | 2018-11-08 10:44 | NUR ---
2ND UNIT PRBC OBTAINED FROM LAB AND GIVEN TO CRISTOPHER HAMPTON, DIALYSIS NURSE.
--- NOTE | 2018-11-08 12:18 | NUR ---
PT STILL IN DIALYSIS
--- NOTE | 2018-11-08 13:29 | NUR ---
PT RETURNED FROM DIALYSIS VIA WHEELCHAIR.
[2018-11-08 15:50] VITALS: BP 132/62; PULSE 73; TEMP 98
--- NOTE | 2018-11-08 15:57 | NUR ---
CALLED SCHEDULING TO DOUBLE CHECK THAT PT'S COLONOSCOPY HAD BEEN SCHEDULED. PT IS IN FACT ON THE SCHEDULE FOR 11/09 AT 1145 WITH ANESTHESIA.
--- NOTE | 2018-11-08 21:35 | NUR ---
Pt resting in bed, visitor in room with Pt, no C/O pain. Shift assessments complete, left Pt call light in reach, bed in lowest position
[2018-11-09] VITALS (11 sets, daily range): BP systolic 140–179; BP diastolic 45–70; PULSE 57–78; TEMP 97.7–98.9
--- NOTE | 2018-11-09 05:37 | NUR ---
Pt slept well during the night, Pt's bowel prep was going well, Pt indicates that he was running clear before sleep. VS have been stable during the night.
--- NOTE | 2018-11-09 09:08 | NUR ---
PT IN ROOM, SITTING AT SIDE OF BED. DENIES PAIN OR DISCOMFORT, NO CONCERNS OR NEEDS AT THIS TIME. CALL LIGHT WITHIN REACH. PT IS A/O X4.
--- NOTE | 2018-11-09 11:38 | NUR ---
PT TAKEN DOWN FOR COLONOSCOPY, BY LILO HAMPTON, VIA BED.
--- NOTE | 2018-11-09 11:55 | NUR ---
First visit from the business solutions consultant. No needs right now.
--- NOTE | 2018-11-09 12:02 | NUR ---
DPOE SE[employer] WILSON CALLED GAVE [place], WANTS DR. ARELLANO TO CALL HER. HER # IS [phone].
--- NOTE | 2018-11-09 13:34 | NUR ---
PT RETURNED FROM HIS COLONOSCOPY VIA [facility], ASSISTED BY LILO HAMPTON, AND PT A/O X4, IN BED AT THIS TIME, CALL LIGHT WITHIN REACH AND BED ALARM ON.
--- NOTE | 2018-11-09 15:22 | NUR ---
SW met with patient about discharge planning. Patient lives independently at home alone. He reports no family or friends in the area. Patient's PCP is Dr Bae and he obtains prescriptions from [facility]. Patient has never used home health services but he does use a walker and oxygen at home. Patient has a DPOA and their are copies in EMR. No discharge needs at this time but SW will continue to follow.
--- NOTE | 2018-11-09 16:00 | NUR ---
PT PULLED OUT IV ACCESS. TRIED TO GET IV ACCESS AND WAS UNSUCCESSFUL.
--- NOTE | 2018-11-09 18:35 | NUR ---
CALLED DR. ARELLANO AND HE GAVE ORDERS TO LEAVE IV OUT.
--- NOTE | 2018-11-09 18:40 | NUR ---
PT RETURNED FROM HIS COLONOSCOPY AND WENT TO SLEEP RIGHT AWAY. PT SLEPT FOR A LITTLE OVER AN HOUR AND THEN HE WOKE UP AND HAS BEEN CONFUSED ON AND OFF. HAD RE-ORIENTATED HIM AND HE WOULD THEN REMEMBER THINGS. PT SEEMS VERY SAD. PT WAS WANTING TO GO HOME BUT ADVISED HIM THERE IS NO ORDERS YET TO GO HOME. PT DENIES PAIN OR DISCOMFORT. PT WAS OFFERED TO ASSIST WITH CALLING TO ORDER SOME FOOD. HE DECLINED AND ADVISED THAT HE WOULD DO IT HIMSELF. THE MENU WAS GIVEN TO HIM. CALL LIGHT WITHIN REACH AND BED ALARM ON.
--- NOTE | 2018-11-09 19:34 | NUR ---
PT IS SITTING AT SIDE OF BED AND IS ON CELLPHONE. PT DID ORDER A SUPPER TRAY THAT WAS DELIEVED TO HIS ROOM. PT DENIED ANY PAIN OR DISCOMFORT. NO NEEDS AT THIS TIME. CALL LIGHT WITHIN REACH AND BED ALARM ON.
--- NOTE | 2018-11-10 00:14 | NUR ---
Completed assessment and medication administration; PT tolerated it well; Verbal confusion apparent during assessment; No IV in place as PT reportedly personally removed IV and declined the need for an IV replacement; A&C during verbal exchange, BS active x4, LCTA with diminished bases; PT declined pain or discomfort at time of assessment; PT declined further needs at time of exit; Call light placed within reach; Will continue to monitor. CDA
[2018-11-10 02:05] VITALS: BP 165/87; PULSE 79; TEMP 97.9
--- NOTE | 2018-11-10 03:13 | NUR ---
PT resting well in bed with no reported concerns; No verbal exchange during check. Call light within reach; Will continue to monitor. CDA
--- NOTE | 2018-11-10 07:12 | NUR ---
Report given to MEMO Acosta. CDA
[2018-11-10 08:22] VITALS: BP 154/57; PULSE 98; TEMP 98.8
[2018-11-10 08:30] LABS: MEAN CORPUSCULAR HGB CONC 32 g/dl (33.0-37.0); MEAN PLATELET VOLUME 10.3 fl (7.4-10.4); PLATELET COUNT 233 K/mm3 (130-400); RED BLOOD COUNT 3.53 M/mm3 (4.20-5.60); REDCELL DISTRIBUTION WIDTH-CV 19.1 % (11.5-14.5)
[2018-11-10 08:32] LABS: HEMATOCRIT 33.8 % (42.0-52.0); HEMOGLOBIN 10.8 g/dl (13.5-18.0); MEAN CELL VOLUME 96 fl (80.0-100.0); MEAN CORPUSCULAR HEMOGLOBIN 31 pg (27.0-31.0)
[2018-11-10 08:36] LABS: ALBUMIN 3.5 gm/dL (3.5-5.0); CALCIUM 9.3 mg/dL (8.4-10.2); CREATININE, serum 3.46 mg/dL (0.66-1.25); PHOSPHOROUS 4.3 mg/dL (2.5-4.5); POTASSIUM 4.7 mmol/L (3.4-5.0)
--- NOTE | 2018-11-10 09:43 | NUR ---
Assessment completed, alert/partially oriented, denies pain, patient stated night court magistrate nurse missed his IV start 6 times and is now refusing anymore attempts at this time/ stated "if I do need more blood, I will consider letting us put in a new IV site", I have ordered him breakfast and explained that he will be having dialysis again today, I have taken him down to [facility] for diaylsis tx
[2018-11-10 10:00] LABS: BAND 1 % (0-10); EOSINOPHIL 4 % (0-4); HYPOCHROMIA 1+; LYMPHOCYTE 11 % (20.0-51.0); NEUTROPHILS 64 % (42.0-75.2); PLATELET ESTIMATE NORMAL (NORMAL)
[2018-11-10 10:01] LABS: POLYCHROMASIA 1+
--- NOTE | 2018-11-10 13:25 | NUR ---
Discharge instructions reveiwed with the patient, instructed to continue diaylsis schedule as before on , patient had self removed his IV last night, he is leaving with a neighbor/friend, I personally escorted him out to the vehicle
== END 2018-11-10 13:27 | disposition home or self-care (01) | DRG 377 ==
LOC: MEDICAL 19:36
PROVIDERS: Internal Medicine Gastroenterology; ADMIT Internal Medicine Nephrology
PROC: 5A1D70Z Performance of Urinary Filtration, Intermittent, Less than 6 Hours Per Day (ICD-10-PCS; 2018-11-08)
PROC: 0DBP8ZX Excision of Rectum, Via Natural or Artificial Opening Endoscopic, Diagnostic (ICD-10-PCS; principal; 2018-11-09 11:45)
PROC: 5A1D70Z Performance of Urinary Filtration, Intermittent, Less than 6 Hours Per Day (ICD-10-PCS; 2018-11-10)
DX: K57.31 Diverticulosis of large intestine without perforation or abscess with bleeding (principal); N18.6 End stage renal disease; D62 Acute posthemorrhagic anemia; I12.0 Hypertensive chronic kidney disease with stage 5 chronic kidney disease or end stage renal disease; D12.8 Benign neoplasm of rectum; Z99.2 Dependence on renal dialysis; I25.10 Atherosclerotic heart disease of native coronary artery without angina pectoris; Z95.5 Presence of coronary angioplasty implant and graft; E78.5 Hyperlipidemia, unspecified; Z95.2 Presence of prosthetic heart valve; F03.90 Unspecified dementia, unspecified severity, without behavioral disturbance, psychotic disturbance, mood disturbance, and anxiety; Z95.1 Presence of aortocoronary bypass graft; Z85.46 Personal history of malignant neoplasm of prostate
CPT/HCPCS: J0882; J2704; J2916; J7030; P9016

== ENCOUNTER 2018-11-08 07:30 | Outpatient (RCR) | payer MEDICARE, OTHER ==
[~2018-11-08 07:30] MED LIST changes: +ULORIC80 MG PO
== END 2018-11-21 17:08 | disposition home or self-care (01) ==
LOC: EUO 07:30
DX: D64.9 Anemia, unspecified (principal)

== ENCOUNTER 2018-12-01 20:16 | Emergency (ER) | payer MEDICARE, OTHER ==
[~2018-12-01] VITALS: Ht 172.7 cm; Wt 68.2 kg
[2018-12-01 20:23] VITALS: TEMP 97
[2018-12-01] MEDS ORDERED: COREG 3.123.125 MG/T PO (22:57)
[2018-12-02 04:35] VITALS: BP 132/115; PULSE 70
== END 2018-12-02 04:35 | disposition home or self-care (01) ==
LOC: COL.ER 20:16
DX: S22.49XA Multiple fractures of ribs, unspecified side, initial encounter for closed fracture (principal); I12.0 Hypertensive chronic kidney disease with stage 5 chronic kidney disease or end stage renal disease; N18.6 End stage renal disease; I25.10 Atherosclerotic heart disease of native coronary artery without angina pectoris; E78.5 Hyperlipidemia, unspecified; K21.9 Gastro-esophageal reflux disease without esophagitis; Z95.1 Presence of aortocoronary bypass graft; Z99.2 Dependence on renal dialysis; W10.9XXA Fall (on) (from) unspecified stairs and steps, initial encounter